=== PATIENT | female | born 1980 | race African-American/Black ===

== ENCOUNTER 2016-10-15 16:00 | Emergency (ER) | payer OTHER, SELFPAY ==
[2016-10-15] MEDS ORDERED: HYDROcodone/Acetaminophen 10/325 mg Tablet ONE (16:41)
[2016-10-15] MEDS ORDERED: Ibuprofen 200 MG TAB ONE (16:42)
--- NOTE | 2016-10-15 16:51 | RAD ---
RIGHT SHOULDER THREE VIEWS: History: Right shoulder pain. No injury. FINDINGS: Mild spurring from the humeral head is seen. There is no evidence of fracture or dislocation. AC shukri nt appears normal width, however, there is slight superior positioning of the clavicle which could p otentially relate to a previous AC injury. IMPRESSION: Mild degenerative spurring from the humeral head without evidence of fracture or dislocation. POS: [facility]
== END 2016-10-15 17:06 | disposition home or self-care (01) ==
LOC: NAV ERS 16:00
DX: S43.401A Unspecified sprain of right shoulder joint, initial encounter (principal); X58.XXXA Exposure to other specified factors, initial encounter

== ENCOUNTER 2016-12-02 20:41 | Emergency (ER) | payer OTHER, SELFPAY ==
[2016-12-02] MEDS ORDERED: Ketorolac Tromethamine 60 MG/2 ML VIAL ONE (21:12)
[2016-12-02] MEDS ORDERED: Cyclobenzaprine 10 MG TAB ONE (21:12)
[2016-12-02] MEDS ORDERED: Acetaminophen 500 MG TAB ONE (21:12)
== END 2016-12-02 22:07 | disposition home or self-care (01) ==
LOC: NAV ERS 20:41
DX: M79.1 Myalgia (principal); F17.210 Nicotine dependence, cigarettes, uncomplicated
CPT/HCPCS: 96372; J1885

== ENCOUNTER 2017-03-21 07:41 | Emergency (ER) | payer OTHER ==
[2017-03-21] MEDS ORDERED: Ketorolac Tromethamine 30 MG/ML VIAL ONE (07:56)
[2017-03-21] MEDS ORDERED: Sodium Chloride 0.9% 1,000 ML ONE (07:56)
[2017-03-21 08:16] LABS: #Basophils 0.1 thou/uL (0.0-0.2); #Monocytes 0.3 thou/uL (0.11-0.59); %Basophils 1.2 % (0.0-1.0); %Eosinophils 0.2 % (0.0-10.0); %Lymphocytes 9.4 % (21.0-51.0); %Neutrophils 86.3 % (42.0-75.0); Hemoglobin 9.7 g/dL (12.0-16.0); Hypochromia MODERATE=16-30 cells (100X) (0-5/hpf); MDiff Complete? YES; Mean Corpuscular HGB CONC 29.6 g/dL (32.0-36.0); Mean Corpuscular Hemoglobin 21.4 pg (27.0-31.0); Mean Corpuscular Volume 72.2 fl (81.0-99.0); Mean Platelet Volume 6.4 fL (7.4-10.4); Microcytosis MARKED = >30 cells (100X) (0-5/hpf); Ovalocytes SLIGHT = 2-5 cells (100X) (0-1/hpf); PLT Morphology Comment Appears Adequate; Platelet Count 300 thou/uL (130-400); Poikilocytosis SLIGHT = 6-15 cells (100X) (0-5/hpf); Polychromasia SLIGHT = 2-3 cells (100X) (0-2/hpf); RBC Distribution Width 17.7 % (11.5-14.5); Red Blood Cell (RBC) Count 4.51 mill/uL (4.20-5.40); Target Cells SLIGHT = 2-5 cells (100X) (0-1/hpf); White Blood Cell (WBC) Count 10.4 thou/uL (4.8-10.8)
[2017-03-21 08:18] LABS: ALT (SGPT) 9 U/L (8-55); AST (SGOT) 13 U/L (5-34); Alkaline Phosphatase 68 U/L (40-150); Anion Gap 12 mmol/L (10-20); BUN (Urea Nitrogen) 9 mg/dL (7.0-18.7); Bilirubin, Total 0.2 mg/dL (0.2-1.2); Calc. Creatinine Clearance 0 mL/min (70-130); Carbon Dioxide 26 mmol/L (22-29); Chloride 108 mmol/L (98-107); Estimated GFR-MDRD Greater than 90; Glucose 122 mg/dL (70-105); Potassium 3.7 mmol/L (3.5-5.1); Sodium 142 mmol/L (136-145)
--- NOTE | 2017-03-21 09:06 | CT ---
CT ABDOMEN AND PELVIS NONCONTRAST: HISTORY: Right flank pain. COMPARISON: 08/17/13. FINDINGS: Each renal collecting system and ureter are decompressed without stone apparent. Phleboliths are no corazon within the pelvis. Urinary bladder is incompletely distended. Lack of contrast limits evaluation for other abnormalities. Within the anterior segment right liver lobe, an oval 1.7 cm low-density lesion is now present where no similar lesion was evident on the p rior contrast-enhanced CT from 2014. No evidence of bowel obstruction. IMPRESSION: 1. No Ct evidence of urinary tract obstruction or calcification. 2. Oval low-density lesion within the posterior segment right liver lobe, apparently new compared t o a previous CT from 2014. On an outpatient basis, please consider dedicated CT of the liver, with and without IV contrast, for better characterization. POS: [facility]
[2017-03-21 09:10] LABS: Bilirubin Small (Negative); Blood, Urine Trace (Negative); Clarity Cloudy (Clear); Glucose, Urine (Dipstick) Negative (Negative); Leukocyte Trace (Negative); Nitrite Negative (Negative); Protein, Urine (Dipstick) 100 mg/dL (Neg-Trace); Specific Gravity, Urine 1.015 (1.005-1.030)
[2017-03-21 09:11] LABS: pH, Urine Greater/Equal 9.0 (5.0-9.0)
[2017-03-21 09:18] LABS: Bacteria/HPF 1+ HPF (None Seen); Hyaline Casts/LPF 0-3 HYALINE CAST LPF (0-3 Hyaline)
== END 2017-03-21 09:48 | disposition home or self-care (01) ==
LOC: NAV ERS 07:41
DX: R10.13 Epigastric pain (principal); R10.11 Right upper quadrant pain; R10.31 Right lower quadrant pain; R11.2 Nausea with vomiting, unspecified
CPT/HCPCS: 74176; 80053; 81003; 81015; 83690; 85025; 87086; 96361; 96374; J1885; J7050

== ENCOUNTER 2019-03-23 15:56 | Emergency (ER) | payer OTHER, SELFPAY | END 2019-03-23 16:50 | disposition home or self-care (01) | LOC: NAV ERS 15:56 | DX: H04.551 Acquired stenosis of right nasolacrimal duct (principal); F17.210 Nicotine dependence, cigarettes, uncomplicated | CPT/HCPCS: 99283 ==

== ENCOUNTER 2021-05-13 10:44 | Emergency (ER) | payer OTHER ==
[2021-05-13] MEDS ORDERED: Lidocaine 1% (PF) 30 ML VIAL ONE (11:42)
[2021-05-13] MEDS ORDERED: Doxycycline 100 MG CAP ONE (11:42)
[2021-05-13] MEDS ORDERED: cefTRIAXone\\ROCEPHIN 500 MG VIAL ONE (11:42)
[2021-05-14 04:58] LABS: Chlam.trachomatis by PCR,Urine Not Detected (NotDetected)
== END 2021-05-13 12:16 | disposition home or self-care (01) ==
LOC: NAV ERS 10:44
DX: M62.830 Muscle spasm of back (principal); G89.29 Other chronic pain; M54.2 Cervicalgia; F17.290 Nicotine dependence, other tobacco product, uncomplicated
CPT/HCPCS: 87491; 87591; 96372; 99284; J0696; J2001

== ENCOUNTER 2022-06-27 06:01 | Emergency (ER) | payer BC, OTHER, SELFPAY ==
[2022-06-27 06:24] LABS: Bilirubin Moderate (Negative); Blood, Urine Small (Negative); Clarity Clear (Clear); Glucose, Urine (Dipstick) Negative (Negative); Ketone, Urine 15 mg/dL (Negative); Leukocyte Negative (Negative); Nitrite Negative (Negative); Protein, Urine (Dipstick) 30 mg/dL (Neg-Trace); Urobilinogen 0.2 mg/dL (Less than 2)
[2022-06-27 06:27] LABS: Bacteria/HPF None Seen HPF (None Seen); RBC/HPF 0-3 HPF (0-3); Specific Gravity, Urine 1.028 (1.002-1.036); WBC/HPF 0-3 HPF (0-3)
[2022-06-27 06:28] LABS: Pregnancy Test - Urine (BHCG) Negative (Negative); Pregu Control Background? CLEAR/WHITE (CLR/WHITE); Pregu Control Bar Appear? YES (CONTROL BAR); Specific Gravity 1.028 (1.002-1.036)
[2022-06-27 06:40] LABS: ALT (SGPT) 16 U/L (8-55); AST (SGOT) 19 U/L (5-34); Albumin 4.3 g/dL (3.5-5.0); Alkaline Phosphatase 80 U/L (40-110); Anion Gap 15 mmol/L (10-20); BUN (Urea Nitrogen) 7 mg/dL (7.0-18.7); Bilirubin, Total 0.7 mg/dL (0.2-1.2); Calc. Creatinine Clearance 0 mL/min (70-130); Calcium 9.1 mg/dL (7.8-10.44); Carbon Dioxide 20 mmol/L (22-29); Chloride 108 mmol/L (98-107); Estimated GFR 92; Globulin 3.2 g/dL (2.4-3.5); Glucose 115 mg/dL (70-105); Potassium 3.5 mmol/L (3.5-5.1); Protein, Total 7.5 g/dL (6.0-8.3); Sodium 139 mmol/L (136-145)
[2022-06-27] MEDS ORDERED: Morphine 4 MG/ML VIAL ONE (06:48)
[2022-06-27] MEDS ORDERED: Ketorolac Tromethamine 30 MG/ML VIAL ONE (06:48)
[2022-06-27] MEDS ORDERED: Sodium Chloride 0.9% 1,000 ML ONE (06:48)
[2022-06-27 06:58] LABS: #Basophils 0.2 thou/uL (0.0-0.2); #Eosinphils 0.2 thou/uL (0.0-0.7); #Lymphocytes 1.8 thou/uL (1.20-3.40); #Monocytes 0.9 thou/uL (0.11-0.59); #Neutrophils 8.6 thou/uL (1.40-6.50); %Basophils 1.3 % (0.0-1.0); %Eosinophils 1.6 % (0.0-10.0); %Lymphocytes 15.4 % (21.0-51.0); %Monocytes 7.4 % (0.0-10.0); %Neutrophils 74.3 % (42.0-75.0); Hemoglobin 14.4 g/dL (12.0-16.0); Mean Corpuscular HGB CONC 31.8 g/dL (32.0-36.0); Mean Corpuscular Hemoglobin 27.1 pg (27.0-31.0); Mean Corpuscular Volume 85.4 fl (78.0-98.0); Mean Platelet Volume 6.6 fL (7.4-10.4); Platelet Count 315 10x3/uL (130-400); RBC Distribution Width 18.6 % (11.5-14.5); Red Blood Cell (RBC) Count 5.32 mill/uL (4.20-5.40); White Blood Cell (WBC) Count 11.6 10x3/uL (4.8-10.8)
[2022-06-27] MEDS ORDERED: Iopamidol 370 76% 100 ML VIAL ONE (09:00)
== END 2022-06-27 08:40 | disposition home or self-care (01) ==
LOC: NAV ERS 06:01
DX: R10.2 Pelvic and perineal pain (principal); F17.291 Nicotine dependence, other tobacco product, in remission
CPT/HCPCS: 74177; 80053; 81003; 81015; 81025; 85025; 96374; 96375; J1885; J2270; J7050; Q9967

== ENCOUNTER 2022-07-07 15:56 | Emergency (ER) | payer OTHER, SELFPAY | END 2022-07-07 16:20 | disposition home or self-care (01) | LOC: NAV ERS 15:56 | DX: S39.012A Strain of muscle, fascia and tendon of lower back, initial encounter (principal); I10 Essential (primary) hypertension; F17.290 Nicotine dependence, other tobacco product, uncomplicated; V89.2XXA Person injured in unspecified motor-vehicle accident, traffic, initial encounter | CPT/HCPCS: 99283 ==

== ENCOUNTER 2023-01-30 12:08 | Emergency (ER) | payer BC | END 2023-01-30 13:21 | disposition home or self-care (01) | LOC: NAV ERS 12:08 | DX: K64.5 Perianal venous thrombosis (principal); F17.290 Nicotine dependence, other tobacco product, uncomplicated | CPT/HCPCS: 99283 ==